=== PATIENT | male | born 1990 | race Hispanic/Latino ===

== ENCOUNTER 2023-01-16 12:56 | Emergency (ER) | payer SELFPAY ==
[2023-01-16 13:17] VITALS: BP 135/96
[2023-01-16] MEDS ORDERED: DECADRON4 MG PO (13:18)
[2023-01-16] MEDS ORDERED: FLEXERIL5 M1 PO (13:18)
[2023-01-16] MEDS ORDERED: IBUPROFEN600 MG PO (13:18)
[2023-01-16 13:59] VITALS: BP 135/96
== END 2023-01-16 14:08 | disposition home or self-care (01) | DRG 552 ==
LOC: ED 12:56
DX: M54.9 Dorsalgia, unspecified (principal)